=== PATIENT | female | born 1990 | race Two or more races ===

== ENCOUNTER 2021-03-12 07:49 | Inpatient (IN) | payer MEDICAID ==
[~2021-03-12] VITALS: Ht 157.5 cm; Wt 78.9 kg
[2021-03-12] MEDS ORDERED: DEXT 5%/LR + PITOCIN 20UNITS/L 1,000 ML IV SCH ×2 (08:45→11:15)
[2021-03-12] MEDS ORDERED: BUTORPHANOL TARTRATE 2 MG/ML VIAL IV PRN (08:45)
[2021-03-12] MEDS ORDERED: METHYLERGONOVINE MALEATE 0.2 MG/ML IM PRN ×2 (08:45→11:15)
[2021-03-12] MEDS ORDERED: NALOXONE HCL 0.4 MG/ML 1ML VIAL IM PRN (08:45)
[2021-03-12] MEDS ORDERED: LACTATED RINGERS 1,000 ML IV SCH (08:45)
[2021-03-12] MEDS ORDERED: LIDOCAINE HCL 1% 20ML VIAL (Pyxis) INJ INFIL SCH (08:45)
[2021-03-12 09:42] LABS: BASOPHILS % 0.1 % (0.0-2.0); EOSINOPHILS % 0.1 % (0.0-5.0); HEMATOCRIT. 37.9 % (36.0-48.0); HEMOGLOBIN. 12.3 g/dL (12.0-16.0); LYMPHOCYTES % 10.7 % (20.0-50.0); MEAN CORPUSCULAR HEMOGLOBIN 29.3 pg (28.0-32.0); MEAN CORPUSCULAR VOLUME 90.2 fL (81.0-99.0); MEAN PLATELET VOLUME 7.8 fl (7.4-10.4); MONOCYTES % 4.3 % (2.0-8.0); NEUTROPHILS % 84.8 % (40.0-76.0); PLATELET 359 x1000/uL (130-400); RED CELL DISTRIBUTION WIDTH 14.3 % (11.6-14.6)
[2021-03-12 09:44] LABS: CLARITY URINE CLOUDY (CLEAR); COLOR URINE DARK YELLOW (YELLOW); KETONES URINE 2+ (NEGATIVE); LEUKOCYTE ESTERASE URINE TRACE (NEGATIVE); NITRITE URINE NEGATIVE (NEGATIVE); OCCULT BLOOD URINE TRACE (NEGATIVE); PH URINE 5.5 (4.5-8.0); PROTEIN URINE TRACE (NEGATIVE); SPECIFIC GRAVITY URINE 1.029 (1.005-1.030)
[2021-03-12 09:52] LABS: INR 0.9; PARTIAL THROMBOPLASTIN TIME 28.2 sec (23.4-31.0)
[2021-03-12 09:55] LABS: *AMPHETAMINES SCREEN URINE NEGATIVE (NEGATIVE); *BARBITURATES SCREEN URINE NEGATIVE (NEGATIVE); *BENZODIAZEPINES SCREEN URINE NEGATIVE (NEGATIVE)
[2021-03-12 09:56] LABS: *COCAINE SCREEN URINE NEGATIVE (NEGATIVE); METHADONE URINE SCREEN NEGATIVE (NEGATIVE); OPIATES URINE SCREEN NEGATIVE (NEGATIVE); PHENCYCLIDINE URINE SCREEN NEGATIVE (NEGATIVE)
[2021-03-12 09:57] LABS: CANNABINOID URINE SCREEN NEGATIVE (NEGATIVE)
[2021-03-12 10:22] LABS: HEPATITIS B SURFACE ANTIGEN NEGATIVE
[2021-03-12] MEDS ORDERED: RHO(D) IMMUNE GLOBULIN 300 MCG/SYR IM PRN (11:15)
[2021-03-12] MEDS ORDERED: IBUPROFEN 400MG TABLET PO PRN (11:15)
[2021-03-12] MEDS ORDERED: LANOLIN OINT 7GM TUBE TOP PRN (11:15)
[2021-03-12 12:00] VITALS: BP 89/50
[2021-03-12 12:30] VITALS: BP 90/50
[2021-03-12 13:00] VITALS: BP 92/46
[2021-03-12] MEDS: IBUPROFEN 800MG TABLET PO PRN (13:39)
[2021-03-12 16:00] VITALS: BP 90/48
[2021-03-12 20:00] VITALS: BP 95/50
[2021-03-13] MEDS: IBUPROFEN 800MG TABLET PO PRN ×2 (03:25→22:59)
[2021-03-13 04:00] VITALS: BP 103/47
[2021-03-13 06:46] LABS: BASOPHILS % 0.4 % (0.0-2.0); HEMOGLOBIN. 10.8 g/dL (12.0-16.0); MEAN CORPUSCULAR HEMOGLOBIN 29.6 pg (28.0-32.0); MEAN CORPUSCULAR VOLUME 90.5 fL (81.0-99.0); MEAN PLATELET VOLUME 7.9 fl (7.4-10.4); MONOCYTES % 6.5 % (2.0-8.0); NEUTROPHILS % 68.1 % (40.0-76.0); PLATELET 314 x1000/uL (130-400); RED BLOOD CELL COUNT 3.65 mill/uL (4.2-5.4); RED CELL DISTRIBUTION WIDTH 14.8 % (11.6-14.6)
[2021-03-13 08:15] VITALS: BP 105/60
[2021-03-13] MEDS: PRENATAL VIT/FE FUMARATE/FA TABLET PO SCH (08:39)
[2021-03-13 15:46] VITALS: BP 90/50
[2021-03-13 20:00] VITALS: BP 93/52
[2021-03-14 03:30] VITALS: BP 95/52
[2021-03-14] MEDS ORDERED: IBUP-2030 PO (07:17)
[2021-03-14 07:53] VITALS: BP 91/50
[2021-03-14] MEDS: PRENATAL VIT/FE FUMARATE/FA TABLET PO SCH (08:46)
== END 2021-03-14 11:30 | disposition home or self-care (01) | DRG 560 ==
LOC: 8 EST LDRP 07:49 → OBSVTOIN 08:27 → 8EST 11:46
PROVIDERS: ADMIT Obstetrics & Gynecology; ATTEND Obstetrics & Gynecology
PROC: 10E0XZZ Delivery of Products of Conception, External Approach (ICD-10-PCS; principal; 2021-03-12)
DX: O90.81 Anemia of the puerperium (principal); Z37.0 Single live birth; D62 Acute posthemorrhagic anemia; Z3A.38 38 weeks gestation of pregnancy; Z20.822 Contact with and (suspected) exposure to COVID-19
CPT/HCPCS: 36415; 80305; 81003; 85025; 86592; 86703; 86762; 86850; 86900; 87340; 87426; 99281; G0378; J2590; J7120